=== PATIENT | female | born 1945 | race Caucasian/White ===

== ENCOUNTER 2021-02-09 21:07 | Observation (INO) ==
[2021-02-09 22:30] LABS: Basophils % 0.3 %; Eosinophils # 0.2 K/mcL (0.0-0.6); Hematocrit 39.5 % (35.3-44.9); Hemoglobin 12.5 g/dL (11.5-15.4); Immature Granulocytes % 0.2 % (0-4); Lymphocytes # 2.7 K/mcL (0.6-4.6); Lymphocytes % 40.6 %; Mean Corpuscular HGB Conc 31.6 g/dL (31.6-35.5); Mean Corpuscular Hemoglobin 31.1 pg (28.0-33.3); Mean Corpuscular Volume 98.3 fL (83.0-100.0); Mean Platelet Volume 9.1 fL (9.4-12.4); Monocytes # 0.6 K/mcL (0.0-1.3); Monocytes % 9.3 %; Neutrophils # 3.1 K/mcL (1.6-8.9); Platelet Count 178 K/mcL (140-400); Red Blood Count 4.02 M/mcL (3.82-4.97); Red Cell Distribution Width 13.2 % (11.5-14.5); Segmented Neutrophils % 46.6 %; White Blood Count 6.7 K/mcL (4.3-11.1)
[2021-02-09 22:46] LABS: Bacteria,Urine Few per hpf (None-Few); Bilirubin,Urine Negative (Negative); Blood,Urine Negative (Negative); Clarity,Urine Clear (Clear); Color,Urine Light-Yellow (Yellow); Glucose,Urine (UA) Normal (Normal); Hyaline Casts,Urine Few per lpf (None Seen); Ketones,Urine Negative (Negative); Leukocyte Esterase,Urine Moderate (Negative); Mucus,Urine Few per lpf (None-Few); Nitrite,Urine Positive (Negative); PH,Urine 6.5 pH Units (5.0-8.0); Protein,Urine Negative (Neg-Trace); RBC,Urine 0-3 per hpf (0-3); Specific Gravity,Urine 1.019 (1.010-1.025); Squamous Epithelial Cell,Urine Few per hpf (None-Few); Urobilinogen,Urine Normal (Normal); WBC,Urine 30-50 per hpf (0-3)
[2021-02-09] MEDS ORDERED: cefTRIAXone 1,000 MG in 0.9 % Sodium Chloride Mini Bag 100 ML IVPB ONE (22:49)
[2021-02-09 22:58] LABS: Albumin/Globulin Ratio 1.4 (1.1-2.2); Bilirubin,Direct 0.1 mg/dL (0.0-0.2); Bilirubin,Indirect 0.3 mg/dL (0.0-1.0); Bilirubin,Total 0.4 mg/dL (0.3-1.0); Calcium 9.3 mg/dL (8.6-10.3); Globulin 2.9 g/dL (2.4-3.5); Potassium 4.8 mEq/L (3.5-5.1); Total Protein 6.9 g/dL (6.4-8.9)
[2021-02-09] MEDS ORDERED: Naloxone 0.4 MG/ML INJ IVP PRN (23:48)
[2021-02-09] MEDS ORDERED: Ondansetron ODT 4 MG TAB.RAPDIS SL PRN (23:54)
[2021-02-10] MEDS ORDERED: Acetaminophen 325 MG TABLET PO PRN (00:04)
[2021-02-10] MEDS ORDERED: *HR* OxyCODONE Immed Rel 5 MG TABLET PO PRN (00:04)
[2021-02-10] MEDS ORDERED: *HR* HYDROcodone/Acet 5/325 mg TABLET PO PRN (00:04)
[2021-02-10] MEDS ORDERED: Sennosides/Docusate Sodium TABLET PO PRN (00:05)
[2021-02-10] MEDS: ALPRAZolam 1 MG TABLET PO SCH ×2 (00:46→08:07)
[2021-02-10 05:48] LABS: Basophils % 0.3 %; Eosinophils # 0.3 K/mcL (0.0-0.6); Eosinophils % 3.9 %; Hematocrit 40.2 % (35.3-44.9); Hemoglobin 12.6 g/dL (11.5-15.4); Immature Granulocytes % 0.1 % (0-4); Lymphocytes # 2.9 K/mcL (0.6-4.6); Lymphocytes % 43.7 %; Mean Corpuscular HGB Conc 31.3 g/dL (31.6-35.5); Mean Corpuscular Hemoglobin 30.9 pg (28.0-33.3); Mean Corpuscular Volume 98.5 fL (83.0-100.0); Mean Platelet Volume 9.1 fL (9.4-12.4); Monocytes # 0.6 K/mcL (0.0-1.3); Neutrophils # 2.9 K/mcL (1.6-8.9); Platelet Count 197 K/mcL (140-400); Red Blood Count 4.08 M/mcL (3.82-4.97); Red Cell Distribution Width 13.3 % (11.5-14.5); White Blood Count 6.7 K/mcL (4.3-11.1)
[2021-02-10 06:00] LABS: INR 1.1; Prothrombin Time 13.1 Seconds (9.4-12.1)
[2021-02-10] MEDS ORDERED: *HR* Heparin 5,000 UNIT/ML VIAL SQ SCH (06:00)
[2021-02-10 06:06] LABS: Calcium 9.3 mg/dL (8.6-10.3)
[2021-02-10 06:09] LABS: Chol/HDL Ratio 4.1 (0-4.9)
[2021-02-10] MEDS ORDERED: atenoloL 50 MG TABLET PO SCH (09:00)
[2021-02-10] MEDS ORDERED: Aspirin 81 MG TAB.CHEW PO SCH (09:00)
[2021-02-10] MEDS ORDERED: cefTRIAXone 1,000 MG in Water for inj. (sterile) 10 ML IVP SCH (09:00)
[2021-02-10 09:14] LABS: Magnesium 2.2 mg/dL (1.6-2.6); Phosphorous 3.3 mg/dL (2.7-4.5)
[2021-02-10 11:40] VITALS: BP 157/84
== END 2021-02-10 13:32 | disposition home or self-care (01) ==
LOC: 3BNU 21:07 → EMEROOARM 21:07 → SUATTDRO 23:25 → 3BNU 23:46
PROVIDERS: ADMIT Family Medicine; ATTEND Internal Medicine

== ENCOUNTER 2021-04-27 06:13 | Inpatient (IN) ==
[2021-04-27] MEDS ORDERED: Lidocaine -MPF 4% 5 ML AMPUL ONE (06:32)
[2021-04-27] MEDS ORDERED: *HR* Succinylcholine 200 MG/10 ML VIAL IVP ONE ×2 (06:32→10:44)
[2021-04-27] MEDS ORDERED: Ondansetron 4 MG/2 ML VIAL ONE (06:32)
[2021-04-27] MEDS ORDERED: Lidocaine -MPF 2% 2 ML VIAL ONE ×3 (06:32→08:07)
[2021-04-27] MEDS ORDERED: *HR* Heparin 5,000 UNIT/ML VIAL ONE (06:33)
[2021-04-27] MEDS ORDERED: *HR* Propofol 200 MG/20 ML VIAL IVP ONE (06:35)
[2021-04-27] MEDS ORDERED: *HR* FentaNYL (PF) 100 MCG/2 ML VIAL ONE ×3 (06:36→11:02)
[2021-04-27] MEDS ORDERED: *HR* Phenylephrine 10 MG/ML VIAL ONE (06:42)
[2021-04-27] MEDS ORDERED: Heparin 1,000 UNITS/500 mL 500 ML ONE ×2 (07:02→07:22)
[2021-04-27] MEDS ORDERED: CeFAZolin Syr 2,000MG/20 ML 2,000 MG/20 ML SYRINGE IVPB ONE (07:10)
[2021-04-27] MEDS ORDERED: Ringers Solution, Lactated 1,000 ML IVC SCH (07:15)
[2021-04-27] MEDS ORDERED: Bupivacaine-MPF 0.25% 10 ML VIAL ONE (07:22)
[2021-04-27] MEDS ORDERED: Vancomycin 1,000 MG VIAL ONE (07:22)
[2021-04-27] MEDS ORDERED: Protamine Sulfate 50 MG/5 ML VIAL IVP ONE (07:22)
[2021-04-27] MEDS ORDERED: *HR* Norepinephrine 4 MG/4 ML VIAL IVC ONE (07:40)
[2021-04-27] MEDS ORDERED: *HR* Rocuronium Bromide 50 MG/5 ML VIAL ONE ×2 (07:40→08:45)
[2021-04-27] MEDS ORDERED: *HR* Vasopressin 20 UNIT/ML VIAL ONE (07:40)
[2021-04-27] MEDS ORDERED: *HR* FentaNYL (PF) 100 MCG/2 ML VIAL IVP PRN (07:41)
[2021-04-27] MEDS ORDERED: Vancomycin 1,000 MG, Sodium Chloride IRRigation 1,000 ML IR ONE (07:45)
[2021-04-27] MEDS ORDERED: Albumin Human 5% 25.0 GM/500 ML IV.SOLN ONE (07:59)
[2021-04-27] MEDS ORDERED: EPHEDrine 50 MG/ML VIAL ONE (08:24)
[2021-04-27] MEDS ORDERED: *HR* Magnesium Sulfate 1 GM/2 ML VIAL ONE (09:16)
[2021-04-27] MEDS ORDERED: *HR* HYDROMORPHONE 2 MG/ML VIAL ONE (10:14)
[2021-04-27] MEDS ORDERED: *HR* Etomidate 20 MG/10 ML AMPUL IVP ONE (10:44)
[2021-04-27] MEDS ORDERED: NiCARdipine 2.5 MG/10 ML Syringe IVPB ONE (11:16)
[2021-04-27] MEDS ORDERED: Albumin Human 5% 0 GM/0 ML IV.SOLN ONE (11:48)
[2021-04-27] MEDS ORDERED: Sugammadex Sodium 200 MG/2 ML VIAL IV ONE (12:00)
[2021-04-27] MEDS ORDERED: *HR* Metoprolol 5 MG/5 ML VIAL IVP ONE ×2 (13:02→13:03)
[2021-04-27] MEDS: *HR* HYDROmorphone PF 0.5 MG/0.5 ML SYRINGE IVP PRN ×4 (13:05→13:23)
[2021-04-27] MEDS ORDERED: D5% in 0.9% NACL 1,000 ML IVC SCH (14:36)
[2021-04-27] MEDS ORDERED: *HR* Labetalol 20 MG/4 ML SYRINGE IVP PRN (14:36)
[2021-04-27] MEDS ORDERED: Naloxone 0.4 MG/ML INJ IVP PRN (14:36)
[2021-04-27] MEDS: CeFAZolin 2 GM/120 ML BAG IVPB SCH (16:07)
[2021-04-27] MEDS: Ondansetron 4 MG/2 ML VIAL IVP PRN (16:18)
[2021-04-27] MEDS: *HR* Metoprolol 5 MG/5 ML VIAL IVP SCH (17:50)
[2021-04-27 20:04] LABS: ABG Base Excess -4 mEq/L (-2 to 3); ABG HCO3 23 mEq/L (21-27); ABG Oxygen Saturation 67 % (95-98); ABG PCO2 48 mmHg (35-45); ABG PH 7.28 pH Units (7.32-7.45); ABG PO2 39 mmHg (85-104); ABG TCO2 24 mEq/L (20-26)
[2021-04-27] MEDS ORDERED: Artificial Tears SOLN 15 ML BOTTLE BOTH EYES PRN (20:46)
[2021-04-27] MEDS ORDERED: *HR* Midazolam HCl 5 MG/5 ML VIAL IVP ONE ×2 (20:49→20:50)
[2021-04-27] MEDS ORDERED: FentaNYL (PF) 1,000 MCG/100 ML IV.SOLN IVC SCH (21:00)
[2021-04-27 21:05] LABS: Basophils % 0.1 %; Hematocrit 26.5 % (35.3-44.9); Immature Granulocytes % 0.6 % (0-4); Lymphocytes # 0.7 K/mcL (0.6-4.6); Lymphocytes % 3.4 %; Mean Corpuscular HGB Conc 30.2 g/dL (31.6-35.5); Mean Corpuscular Hemoglobin 30.7 pg (28.0-33.3); Mean Corpuscular Volume 101.5 fL (83.0-100.0); Mean Platelet Volume 9.2 fL (9.4-12.4); Monocytes % 4.5 %; Neutrophils # 19.7 K/mcL (1.6-8.9); Platelet Count 192 K/mcL (140-400); Red Blood Count 2.61 M/mcL (3.82-4.97); Red Cell Distribution Width 13.3 % (11.5-14.5); Segmented Neutrophils % 91.4 %
[2021-04-27 21:07] LABS: White Blood Count 21.5 K/mcL (4.3-11.1)
[2021-04-27 21:12] LABS: INR 1.3
[2021-04-27 21:24] LABS: Calcium 7.1 mg/dL (8.6-10.3); Potassium 5.4 mEq/L (3.5-5.1)
[2021-04-27 21:29] LABS: Platelet Estimate Normal (Normal)
[2021-04-27] MEDS: Pantoprazole 40 MG in 0.9 % Sodium Chloride Mini Bag 100 ML IVC SCH (21:34)
[2021-04-27 22:05] LABS: ABG Base Excess -7 mEq/L (-2 to 3); ABG HCO3 20 mEq/L (21-27); ABG Oxygen Saturation 100 % (95-98); ABG PCO2 49 mmHg (35-45); ABG PH 7.22 pH Units (7.32-7.45); ABG PO2 345 mmHg (85-104); ABG TCO2 22 mEq/L (20-26); Blood Gas VT 380 cc
[2021-04-27] MEDS: Chlorhexidine Rinse 15 ML MOUTHWASH MM SCH (22:19)
[2021-04-27] MEDS ORDERED: Insulin Human Regular 10 UNIT in 0.9 % Sodium Chloride 10 ML IV ONE (22:34)
[2021-04-27] MEDS ORDERED: Calcium Gluconate 1gm/50mL 1 GM/50 ML BAG IVPB PRN (22:34)
[2021-04-27] MEDS ORDERED: Albuterol Neb 7.5 MG, Sodium Chloride for inhalation 12 ML IH ONE (22:37)
[2021-04-27] MEDS ORDERED: Albuterol 2.5 MG/3 ML NEBULIZER IH ONE ×2 (23:08→23:15)
[2021-04-27] MEDS ORDERED: Albuterol 2.5 MG/3 ML NEBULIZER ONE (23:11)
[2021-04-27] MEDS ORDERED: 0.9 % Sodium Chloride 1,000 ML IVC SCH (23:45)
[2021-04-28] MEDS ORDERED: *HR* Midazolam HCl 5 MG/5 ML VIAL IVP ONE ×2 (00:23→00:26)
[2021-04-28] MEDS: FentaNYL (PF) 2,500 MCG/50 ML IV.SOLN IVC SCH ×3 (00:30→20:09)
[2021-04-28] MEDS: CeFAZolin 2 GM/120 ML BAG IVPB SCH (00:43)
[2021-04-28] MEDS: *HR* Metoprolol 5 MG/5 ML VIAL IVP SCH ×4 (00:45→16:59)
[2021-04-28] MEDS: Artificial Tears SOLN 15 ML BOTTLE BOTH EYES SCH ×6 (00:45→19:38)
[2021-04-28] MEDS: Midazolam HCl 50 MG/100 ML IV.SOLN IVC SCH ×2 (00:48→13:32)
[2021-04-28 02:02] LABS: Basophils % 0.1 %; Hematocrit 29.8 % (35.3-44.9); Hemoglobin 8.8 g/dL (11.5-15.4); Immature Granulocytes % 0.7 % (0-4); Lymphocytes # 1.4 K/mcL (0.6-4.6); Lymphocytes % 6.2 %; Mean Corpuscular HGB Conc 29.5 g/dL (31.6-35.5); Mean Corpuscular Hemoglobin 30.8 pg (28.0-33.3); Mean Corpuscular Volume 104.2 fL (83.0-100.0); Mean Platelet Volume 9.1 fL (9.4-12.4); Monocytes # 1.6 K/mcL (0.0-1.3); Monocytes % 7.3 %; Neutrophils # 19.2 K/mcL (1.6-8.9); Platelet Count 158 K/mcL (140-400); Red Blood Count 2.86 M/mcL (3.82-4.97); Red Cell Distribution Width 13.3 % (11.5-14.5); Segmented Neutrophils % 85.7 %; White Blood Count 22.4 K/mcL (4.3-11.1)
[2021-04-28 02:24] LABS: Magnesium 2.3 mg/dL (1.6-2.6); Phosphorous 4.8 mg/dL (2.7-4.5)
[2021-04-28] MEDS: Pantoprazole 40 MG in 0.9 % Sodium Chloride Mini Bag 100 ML IVC SCH ×4 (03:13→18:47)
[2021-04-28 04:35] LABS: ABG Base Excess -9 mEq/L (-2 to 3); ABG HCO3 19 mEq/L (21-27); ABG Oxygen Saturation 96 % (95-98); ABG PCO2 54 mmHg (35-45); ABG PH 7.16 pH Units (7.32-7.45); ABG PO2 106 mmHg (85-104); ABG TCO2 21 mEq/L (20-26); Blood Gas Modality ASSIST CONTROL; Blood Gas VT 380 cc
[2021-04-28 05:19] LABS: Calcium 8.1 mg/dL (8.6-10.3); Potassium 4.3 mEq/L (3.5-5.1)
[2021-04-28] MEDS: Azithromycin 500 MG in 0.9 % Sodium Chloride 250 ML IVPB SCH (06:12)
[2021-04-28] MEDS: MetroNIDAZOLE 500 MG/100 ML 500 MG/100 ML BAG IVPB SCH ×3 (06:31→17:25)
[2021-04-28] MEDS: Aspirin 81 MG TAB.CHEW PO SCH (08:57)
[2021-04-28] MEDS: Chlorhexidine Rinse 15 ML MOUTHWASH MM SCH ×2 (08:57→19:38)
[2021-04-28] MEDS ORDERED: cefTRIAXone 1,000 MG in Water for inj. (sterile) 10 ML IVP SCH (09:00)
[2021-04-28 09:12] LABS: Hemoglobin 7.2 g/dL (11.5-15.4)
[2021-04-28] MEDS: Norepinephrine 4 MG/254 ML IV.SOLN IVC SCH ×4 (10:02→21:25)
[2021-04-28 10:59] LABS: ABG Base Excess -4 mEq/L (-2 to 3); ABG HCO3 21 mEq/L (21-27); ABG Oxygen Saturation 99 % (95-98); ABG PCO2 38 mmHg (35-45); ABG PH 7.35 pH Units (7.32-7.45); ABG PO2 145 mmHg (85-104); ABG TCO2 22 mEq/L (20-26); Blood Gas VT 380 cc
[2021-04-28] MEDS: Cefepime HCl 1,000 MG in Water for inj. (sterile) 10 ML IVP SCH (11:12)
[2021-04-28 12:11] LABS: Albumin 2.9 g/dL (3.5-5.7); Albumin/Globulin Ratio 1.5 (1.1-2.2); Bilirubin,Total 0.3 mg/dL (0.3-1.0); Calcium 7.5 mg/dL (8.6-10.3); Globulin 1.9 g/dL (2.4-3.5); Potassium 4.4 mEq/L (3.5-5.1); Total Protein 4.8 g/dL (6.4-8.9)
[2021-04-28 12:14] LABS: Troponin I 0.09 ng/mL (< 0.04)
[2021-04-28 13:19] LABS: Calcium 7.6 mg/dL (8.6-10.3); Potassium 4.5 mEq/L (3.5-5.1)
[2021-04-28 13:30] LABS: Basophils % 0.1 %; Nucleated Red Blood Cells 0.1 /100 WBC (0); Red Cell Distribution Width 13.5 % (11.5-14.5)
[2021-04-28 13:31] LABS: Hematocrit 30.9 % (35.3-44.9); Hemoglobin 8.9 g/dL (11.5-15.4); Immature Granulocytes % 0.6 % (0-4); Lymphocytes # 1.3 K/mcL (0.6-4.6); Lymphocytes % 6.6 %; Mean Corpuscular HGB Conc 28.8 g/dL (31.6-35.5); Mean Corpuscular Hemoglobin 31.8 pg (28.0-33.3); Mean Corpuscular Volume 110.4 fL (83.0-100.0); Monocytes # 1.5 K/mcL (0.0-1.3); Monocytes % 7.6 %; Neutrophils # 17.1 K/mcL (1.6-8.9); Platelet Count 138 K/mcL (140-400); Segmented Neutrophils % 85.1 %; White Blood Count 20.1 K/mcL (4.3-11.1)
[2021-04-28 14:49] LABS: Burr Cells 2+ (Not Present); Hypochromasia Present (Not Present); Macrocytosis Present (Not Present); Platelet Estimate Decreased (Normal); Poikilocytosis 2+ (Not Present)
[2021-04-28 16:45] LABS: Hematocrit 26.7 % (35.3-44.9); Hemoglobin 8.8 g/dL (11.5-15.4)
[2021-04-28] MEDS ORDERED: *HR* Heparin 5,000 UNIT/ML VIAL SQ SCH (18:00)
[2021-04-28 18:58] LABS: Hematocrit 26.4 % (35.3-44.9); Hemoglobin 8.6 g/dL (11.5-15.4)
[2021-04-28 19:15] LABS: Calcium 7.6 mg/dL (8.6-10.3); Potassium 4.8 mEq/L (3.5-5.1)
[2021-04-28 23:13] LABS: Calcium 7.6 mg/dL (8.6-10.3); Potassium 4.8 mEq/L (3.5-5.1)
[2021-04-29] MEDS: Pantoprazole 40 MG in 0.9 % Sodium Chloride Mini Bag 100 ML IVC SCH ×5 (01:30→19:42)
[2021-04-29] MEDS: Artificial Tears SOLN 15 ML BOTTLE BOTH EYES SCH ×7 (01:31→23:35)
[2021-04-29] MEDS: Cefepime HCl 1,000 MG in Water for inj. (sterile) 10 ML IVP SCH ×3 (01:31→23:35)
[2021-04-29] MEDS: Norepinephrine 4 MG/254 ML IV.SOLN IVC SCH ×2 (01:32→10:58)
[2021-04-29] MEDS: *HR* Metoprolol 5 MG/5 ML VIAL IVP SCH ×4 (01:33→17:23)
[2021-04-29] MEDS: MetroNIDAZOLE 500 MG/100 ML 500 MG/100 ML BAG IVPB SCH ×5 (01:36→23:34)
[2021-04-29] MEDS: Midazolam HCl 50 MG/100 ML IV.SOLN IVC SCH (03:18)
[2021-04-29 03:26] LABS: Basophils % 0.2 %; Eosinophils % 0.1 %; Hematocrit 25.9 % (35.3-44.9); Immature Granulocytes % 0.8 % (0-4); Lymphocytes # 1.7 K/mcL (0.6-4.6); Lymphocytes % 8.8 %; Mean Corpuscular HGB Conc 30.9 g/dL (31.6-35.5); Mean Corpuscular Hemoglobin 29.3 pg (28.0-33.3); Mean Platelet Volume 9.4 fL (9.4-12.4); Monocytes # 1.3 K/mcL (0.0-1.3); Monocytes % 6.4 %; Neutrophils # 16.5 K/mcL (1.6-8.9); Platelet Count 111 K/mcL (140-400); Red Blood Count 2.73 M/mcL (3.82-4.97); Segmented Neutrophils % 83.7 %; White Blood Count 19.7 K/mcL (4.3-11.1)
[2021-04-29 03:41] LABS: Calcium 7.5 mg/dL (8.6-10.3); Potassium 4.7 mEq/L (3.5-5.1)
[2021-04-29 04:06] LABS: Mean Corpuscular Volume 94.9 fL (83.0-100.0)
[2021-04-29 05:03] LABS: ABG Base Excess -6 mEq/L (-2 to 3); ABG HCO3 19 mEq/L (21-27); ABG Oxygen Saturation 100 % (95-98); ABG PCO2 32 mmHg (35-45); ABG PH 7.38 pH Units (7.32-7.45); ABG PO2 168 mmHg (85-104); ABG TCO2 20 mEq/L (20-26); Blood Gas Modality AF; Blood Gas VT 380 cc
[2021-04-29] MEDS: Azithromycin 500 MG in 0.9 % Sodium Chloride 250 ML IVPB SCH (06:26)
[2021-04-29] MEDS: FentaNYL (PF) 2,500 MCG/50 ML IV.SOLN IVC SCH ×2 (07:54→23:34)
[2021-04-29] MEDS: Aspirin 81 MG TAB.CHEW PO SCH (07:56)
[2021-04-29] MEDS: Chlorhexidine Rinse 15 ML MOUTHWASH MM SCH ×2 (07:56→19:42)
[2021-04-29] MEDS ORDERED: Sodium Bicarbonate 75 MEQ in 0.45 % Sodium Chloride 1,000 ML IVC SCH (13:00)
[2021-04-29] MEDS: Sodium Bicarbonate 75 MEQ in 0.45 % Sodium Chloride 1,000 ML IVC SCH (14:07)
[2021-04-29 15:02] LABS: Protein/Creatinine Ratio,Urine 1.2 mg/mg (0.00-0.20)
[2021-04-29 15:02] LABS: Amorphous Sediment,Urine Few per hpf (None-Few); Bacteria,Urine Few per hpf (None-Few); Bilirubin,Urine Negative (Negative); Blood,Urine Moderate (Negative); Clarity,Urine Turbid (Clear); Color,Urine Yellow (Yellow); Glucose,Urine (UA) Normal (Normal); Granular Casts,Urine Few per lpf (None Seen); Hyaline Casts,Urine Few per lpf (None Seen); Ketones,Urine Trace mg/dL (Negative); Leukocyte Esterase,Urine Moderate (Negative); Mucus,Urine Few per lpf (None-Few); Nitrite,Urine Negative (Negative); Protein,Urine 100 mg/dL (Neg-Trace); Specific Gravity,Urine 1.026 (1.010-1.025); Squamous Epithelial Cell,Urine Few per hpf (None-Few); Urobilinogen,Urine Normal (Normal); WBC,Urine 15-30 per hpf (0-3)
[2021-04-29 15:29] LABS: Complement C3 69 mg/dL (87-200)
[2021-04-29 15:45] LABS: Ferritin 807 ng/mL (10-120); Iron < 10 mcg/dL (50-170); Transferrin 172 mg/dL (203-362)
[2021-04-29 16:02] LABS: Hematocrit 23.2 % (35.3-44.9); Hemoglobin 7.2 g/dL (11.5-15.4)
[2021-04-29 16:49] LABS: Folate 13.6 ng/mL (3.0-16.0)
[2021-04-30] MEDS: *HR* Metoprolol 5 MG/5 ML VIAL IVP SCH ×5 (01:52→23:42)
[2021-04-30] MEDS: Sodium Bicarbonate 75 MEQ in 0.45 % Sodium Chloride 1,000 ML IVC SCH (01:52)
[2021-04-30 02:51] LABS: Basophils % 0.1 %; Eosinophils % 0.5 %; Immature Granulocytes % 0.5 % (0-4)
[2021-04-30 02:53] LABS: Eosinophils # 0.1 K/mcL (0.0-0.6); Hematocrit 20.3 % (35.3-44.9); Hemoglobin 6.4 g/dL (11.5-15.4); Immature Platelets 2.2 % (1.1-6.1); Lymphocytes # 1.4 K/mcL (0.6-4.6); Lymphocytes % 10.5 %; Mean Corpuscular HGB Conc 31.5 g/dL (31.6-35.5); Mean Corpuscular Hemoglobin 29.8 pg (28.0-33.3); Mean Corpuscular Volume 94.4 fL (83.0-100.0); Mean Platelet Volume 9.7 fL (9.4-12.4); Monocytes # 0.7 K/mcL (0.0-1.3); Neutrophils # 11.1 K/mcL (1.6-8.9); Red Blood Count 2.15 M/mcL (3.82-4.97); Red Cell Distribution Width 15.7 % (11.5-14.5); Segmented Neutrophils % 83.4 %; White Blood Count 13.3 K/mcL (4.3-11.1)
[2021-04-30 02:54] LABS: Platelet Count 80 K/mcL (140-400)
[2021-04-30 03:10] LABS: Potassium 3.8 mEq/L (3.5-5.1)
[2021-04-30 03:11] LABS: Calcium 7.4 mg/dL (8.6-10.3)
[2021-04-30] MEDS: Artificial Tears SOLN 15 ML BOTTLE BOTH EYES SCH ×6 (03:19→23:41)
[2021-04-30] MEDS ORDERED: 0.9 % Sodium Chloride 250 ML IVC SCH (03:30)
[2021-04-30 04:44] LABS: ABG Base Excess -4 mEq/L (-2 to 3); ABG HCO3 21 mEq/L (21-27); ABG Oxygen Saturation 94 % (95-98); ABG PCO2 40 mmHg (35-45); ABG PH 7.33 pH Units (7.32-7.45); ABG PO2 77 mmHg (85-104); ABG TCO2 23 mEq/L (20-26); Blood Gas VT 380 cc
[2021-04-30] MEDS ORDERED: 0.9 % Sodium Chloride 250 ML ONE (05:09)
[2021-04-30] MEDS: Pantoprazole 40 MG in 0.9 % Sodium Chloride Mini Bag 100 ML IVC SCH ×6 (05:20→22:15)
[2021-04-30] MEDS: Azithromycin 500 MG in 0.9 % Sodium Chloride 250 ML IVPB SCH (05:49)
[2021-04-30] MEDS: MetroNIDAZOLE 500 MG/100 ML 500 MG/100 ML BAG IVPB SCH ×4 (05:49→23:42)
[2021-04-30] MEDS: Chlorhexidine Rinse 15 ML MOUTHWASH MM SCH ×2 (07:51→20:16)
[2021-04-30] MEDS: Aspirin 81 MG TAB.CHEW PO SCH (09:49)
[2021-04-30 10:07] LABS: Hematocrit 25.5 % (35.3-44.9)
[2021-04-30 10:11] LABS: Hemoglobin 8.1 g/dL (11.5-15.4)
[2021-04-30] MEDS: Cefepime HCl 1,000 MG in Water for inj. (sterile) 10 ML IVP SCH ×2 (10:27→22:15)
[2021-04-30] MEDS: FentaNYL (PF) 2,500 MCG/50 ML IV.SOLN IVC SCH (20:17)
[2021-04-30] MEDS: Midazolam HCl 50 MG/100 ML IV.SOLN IVC SCH (22:57)
[2021-05-01] MEDS: FentaNYL (PF) 2,500 MCG/50 ML IV.SOLN IVC SCH (00:54)
[2021-05-01] MEDS: Pantoprazole 40 MG in 0.9 % Sodium Chloride Mini Bag 100 ML IVC SCH ×2 (02:15→07:26)
[2021-05-01 04:03] LABS: ABG Base Excess -7 mEq/L (-2 to 3); ABG HCO3 18 mEq/L (21-27); ABG Oxygen Saturation 92 % (95-98); ABG PCO2 32 mmHg (35-45); ABG PH 7.35 pH Units (7.32-7.45); ABG PO2 65 mmHg (85-104); ABG TCO2 19 mEq/L (20-26); Blood Gas Modality ASSIST CONTROL; Blood Gas VT 380 cc
[2021-05-01] MEDS: Artificial Tears SOLN 15 ML BOTTLE BOTH EYES SCH ×4 (04:08→19:28)
[2021-05-01 04:19] LABS: Calcium 7.8 mg/dL (8.6-10.3); Magnesium 2.2 mg/dL (1.6-2.6); Potassium 3.8 mEq/L (3.5-5.1)
[2021-05-01 04:25] LABS: Basophils % 0.1 %
[2021-05-01 04:27] LABS: Eosinophils # 0.1 K/mcL (0.0-0.6); Hematocrit 27.5 % (35.3-44.9); Hemoglobin 8.5 g/dL (11.5-15.4); Immature Granulocytes % 0.6 % (0-4); Immature Platelets 2.1 % (1.1-6.1); Lymphocytes # 1.3 K/mcL (0.6-4.6); Lymphocytes % 9.4 %; Mean Corpuscular HGB Conc 30.9 g/dL (31.6-35.5); Mean Corpuscular Hemoglobin 29.9 pg (28.0-33.3); Mean Corpuscular Volume 96.8 fL (83.0-100.0); Mean Platelet Volume 9.6 fL (9.4-12.4); Monocytes # 0.8 K/mcL (0.0-1.3); Monocytes % 6.2 %; Neutrophils # 11.1 K/mcL (1.6-8.9); Red Blood Count 2.84 M/mcL (3.82-4.97); Red Cell Distribution Width 14.9 % (11.5-14.5); Segmented Neutrophils % 82.7 %; White Blood Count 13.4 K/mcL (4.3-11.1)
[2021-05-01 04:33] LABS: Platelet Count 87 K/mcL (140-400)
[2021-05-01] MEDS: *HR* Metoprolol 5 MG/5 ML VIAL IVP SCH ×4 (05:35→23:30)
[2021-05-01] MEDS: MetroNIDAZOLE 500 MG/100 ML 500 MG/100 ML BAG IVPB SCH ×3 (05:35→22:13)
[2021-05-01] MEDS: Azithromycin 500 MG in 0.9 % Sodium Chloride 250 ML IVPB SCH (05:35)
[2021-05-01] MEDS: Chlorhexidine Rinse 15 ML MOUTHWASH MM SCH ×2 (07:28→19:28)
[2021-05-01] MEDS: Cefepime HCl 1,000 MG in Water for inj. (sterile) 10 ML IVP SCH ×2 (11:56→22:13)
[2021-05-01] MEDS: Ondansetron 4 MG/2 ML VIAL IVP PRN (13:15)
[2021-05-01] MEDS ORDERED: Ipratropium/Albuterol Neb 3 ML IH PRN (14:15)
[2021-05-01] MEDS: Aspirin 81 MG TAB.CHEW PO SCH (17:16)
[2021-05-01] MEDS: Pantoprazole 40 MG VIAL IVP SCH (17:21)
[2021-05-01] MEDS ORDERED: ALPRAZolam 1 MG TABLET PO PRN (18:18)
[2021-05-01] MEDS: *HR* LORazepam 2 MG/ML VIAL IVP SCH ×2 (18:35→23:30)
[2021-05-02 00:29] LABS: Lambda Qnt Free Light Chains 27.24 mg/L (5.71-26.30)
[2021-05-02 04:34] LABS: VBG Ionized Calcium 1.18 mmol/L (1.15-1.35)
[2021-05-02 04:47] LABS: Albumin 2.9 g/dL (3.5-5.7); Albumin/Globulin Ratio 1.3 (1.1-2.2); Bilirubin,Total 0.9 mg/dL (0.3-1.0); Calcium 8.4 mg/dL (8.6-10.3); Globulin 2.2 g/dL (2.4-3.5); Magnesium 2.1 mg/dL (1.6-2.6); Phosphorous 3.1 mg/dL (2.7-4.5); Potassium 4.1 mEq/L (3.5-5.1); Total Protein 5.1 g/dL (6.4-8.9)
[2021-05-02 05:05] LABS: Basophils % 0.1 %; Eosinophils % 0.1 %; Hematocrit 28.6 % (35.3-44.9); Hemoglobin 8.9 g/dL (11.5-15.4); Immature Granulocytes % 0.9 % (0-4); Immature Platelets 2.2 % (1.1-6.1); Lymphocytes % 6.7 %; Mean Corpuscular HGB Conc 31.1 g/dL (31.6-35.5); Mean Corpuscular Hemoglobin 30.4 pg (28.0-33.3); Mean Corpuscular Volume 97.6 fL (83.0-100.0); Mean Platelet Volume 9.3 fL (9.4-12.4); Monocytes # 1.1 K/mcL (0.0-1.3); Monocytes % 7.3 %; Neutrophils # 12.9 K/mcL (1.6-8.9); Platelet Count 103 K/mcL (140-400); Red Blood Count 2.93 M/mcL (3.82-4.97); Segmented Neutrophils % 84.9 %; White Blood Count 15.2 K/mcL (4.3-11.1)
[2021-05-02] MEDS: Azithromycin 500 MG in 0.9 % Sodium Chloride 250 ML IVPB SCH (06:02)
[2021-05-02] MEDS: MetroNIDAZOLE 500 MG/100 ML 500 MG/100 ML BAG IVPB SCH ×2 (06:03→13:31)
[2021-05-02] MEDS: *HR* Metoprolol 5 MG/5 ML VIAL IVP SCH ×2 (06:03→12:23)
[2021-05-02] MEDS: Pantoprazole 40 MG VIAL IVP SCH ×2 (06:03→17:35)
[2021-05-02] MEDS: Norepinephrine 4 MG/254 ML IV.SOLN IVC SCH (07:37)
[2021-05-02] MEDS: *HR* LORazepam 2 MG/ML VIAL IVP SCH (08:15)
[2021-05-02] MEDS ORDERED: Aspirin Enteric Coated 81 MG Tablet PO SCH (09:00)
[2021-05-02] MEDS: Ondansetron 4 MG/2 ML VIAL IVP PRN (10:04)
[2021-05-02 10:37] LABS: ANA IgG by ELISA NONE DETECTED (None Detected); Kappa Qnt Free Light Chains 48.19 mg/L (3.30-19.40)
[2021-05-02] MEDS: Cefepime HCl 1,000 MG in Water for inj. (sterile) 10 ML IVP SCH ×2 (12:20→23:39)
[2021-05-02] MEDS ORDERED: 0.9 % Sodium Chloride 250 ML IVC SCH (13:44)
[2021-05-02] MEDS ORDERED: Ipratropium/Albuterol Neb 3 ML IH PRN (13:44)
[2021-05-02] MEDS ORDERED: Ondansetron 4 MG/2 ML VIAL IVP PRN (13:44)
[2021-05-02] MEDS ORDERED: Naloxone 0.4 MG/ML INJ IVP PRN (13:44)
[2021-05-02] MEDS ORDERED: MetroNIDAZOLE 500 MG/100 ML 500 MG/100 ML BAG IVPB SCH (14:00)
[2021-05-02] MEDS: *HR* Labetalol 20 MG/4 ML SYRINGE IVP PRN (17:40)
[2021-05-02] MEDS: ALPRAZolam 1 MG TABLET PO PRN (18:52)
[2021-05-03 04:15] LABS: Basophils % 0.2 %; Eosinophils % 0.2 %; Mean Platelet Volume 8.9 fL (9.4-12.4); Red Cell Distribution Width 14.8 % (11.5-14.5)
[2021-05-03 04:17] LABS: Hematocrit 25.9 % (35.3-44.9); Hemoglobin 8.2 g/dL (11.5-15.4); Immature Granulocytes % 1.3 % (0-4); Immature Platelets 2.5 % (1.1-6.1); Lymphocytes # 1.3 K/mcL (0.6-4.6); Lymphocytes % 9.5 %; Mean Corpuscular HGB Conc 31.7 g/dL (31.6-35.5); Mean Corpuscular Hemoglobin 30.3 pg (28.0-33.3); Mean Corpuscular Volume 95.6 fL (83.0-100.0); Monocytes # 1.3 K/mcL (0.0-1.3); Monocytes % 9.9 %; Platelet Count 104 K/mcL (140-400); Red Blood Count 2.71 M/mcL (3.82-4.97); Segmented Neutrophils % 78.9 %; White Blood Count 13.2 K/mcL (4.3-11.1)
[2021-05-03 04:23] LABS: Neutrophils # 10.4 K/mcL (1.6-8.9)
[2021-05-03 04:25] LABS: VBG Ionized Calcium 1.19 mmol/L (1.15-1.35)
[2021-05-03 04:34] LABS: Albumin 2.8 g/dL (3.5-5.7); Albumin/Globulin Ratio 1.5 (1.1-2.2); Bilirubin,Total 0.7 mg/dL (0.3-1.0); Globulin 1.9 g/dL (2.4-3.5); Magnesium 1.9 mg/dL (1.6-2.6); Phosphorous 2.3 mg/dL (2.7-4.5); Potassium 3.3 mEq/L (3.5-5.1); Total Protein 4.7 g/dL (6.4-8.9)
[2021-05-03] MEDS ORDERED: Potassium Phosphate 44 MEQ in 0.9 % Sodium Chloride 250 ML IVPB ONE (05:09)
[2021-05-03] MEDS: Pantoprazole 40 MG VIAL IVP SCH ×2 (05:52→17:21)
[2021-05-03] MEDS ORDERED: Calcium Gluconate 1gm/50mL 1 GM/50 ML BAG IVPB PRN (08:11)
[2021-05-03] MEDS: Aspirin Enteric Coated 81 MG Tablet PO SCH (09:39)
[2021-05-03] MEDS: Cefepime HCl 1,000 MG in Water for inj. (sterile) 10 ML IVP SCH (10:00)
[2021-05-03] MEDS: *HR* Labetalol 20 MG/4 ML SYRINGE IVP PRN (15:38)
[2021-05-03] MEDS ORDERED: *HR* Labetalol 20 MG/4 ML SYRINGE IVP PRN (16:00)
[2021-05-03] MEDS: ALPRAZolam 1 MG TABLET PO PRN (17:21)
[2021-05-03 18:10] LABS: Magnesium 2.1 mg/dL (1.6-2.6); Potassium 3.1 mEq/L (3.5-5.1)
[2021-05-03] MEDS ORDERED: Potassium Chloride Elixir 20 MEQ/15 ML UDC PO ONE (18:28)
[2021-05-03] MEDS: Ipratropium/Albuterol Neb 3 ML IH SCH ×2 (20:02→23:51)
[2021-05-03] MEDS ORDERED: Cefepime HCl 2,000 MG in Water for inj. (sterile) 20 ML IVP SCH (23:00)
[2021-05-03 23:50] LABS: ABG Base Excess -4 mEq/L (-2 to 3); ABG HCO3 20 mEq/L (21-27); ABG Oxygen Saturation 98 % (95-98); ABG PCO2 30 mmHg (35-45); ABG PH 7.43 pH Units (7.32-7.45); ABG PO2 101 mmHg (85-104); ABG TCO2 21 mEq/L (20-26)
[2021-05-04 00:22] LABS: Alpha 2 Globulin (PEP) 0.57 g/dL (0.48-1.05); Beta Globulin (PEP) 0.53 g/dL (0.48-1.10)
[2021-05-04 03:38] LABS: VBG Ionized Calcium 1.09 mmol/L (1.15-1.35)
[2021-05-04 03:46] LABS: Basophils % 0.3 %; Eosinophils # 0.2 K/mcL (0.0-0.6); Eosinophils % 1.7 %; Hematocrit 27.4 % (35.3-44.9); Hemoglobin 8.8 g/dL (11.5-15.4); Immature Platelets 2.8 % (1.1-6.1); Lymphocytes % 8.2 %; Mean Corpuscular HGB Conc 32.1 g/dL (31.6-35.5); Mean Corpuscular Hemoglobin 31.3 pg (28.0-33.3); Mean Corpuscular Volume 97.5 fL (83.0-100.0); Mean Platelet Volume 9.9 fL (9.4-12.4); Monocytes # 1.1 K/mcL (0.0-1.3); Monocytes % 9.2 %; Neutrophils # 9.4 K/mcL (1.6-8.9); Red Blood Count 2.81 M/mcL (3.82-4.97); Red Cell Distribution Width 15.2 % (11.5-14.5); Segmented Neutrophils % 77.6 %; White Blood Count 12.1 K/mcL (4.3-11.1)
[2021-05-04 04:19] LABS: Alanine Aminotransferase 17 Units/L (7-52); Albumin 2.8 g/dL (3.5-5.7); Albumin/Globulin Ratio 1.4 (1.1-2.2); Alkaline Phosphatase 44 Units/L (34-104); Aspartate Amino Transferase 35 Units/L (13-39); BUN/Creatinine Ratio 39 (6-26); Blood Urea Nitrogen 38 mg/dL (8-23); Calcium 7.6 mg/dL (8.6-10.3); Carbon Dioxide 18 mEq/L (23-29); Chloride 119 mEq/L (98-107); Glucose 127 mg/dL (70-105); Magnesium 1.8 mg/dL (1.6-2.6); Osmolality,Calculated 309 (280-300); Phosphorous 2.6 mg/dL (2.7-4.5); Potassium 3.2 mEq/L (3.5-5.1); Sodium 144 mEq/L (136-145); Total Protein 4.8 g/dL (6.4-8.9); eGFR For African Americans > 60 (> 60); eGFR For Non-African Americans 55 (> 60)
[2021-05-04 04:24] LABS: Platelet Count 97 K/mcL (140-400)
[2021-05-04] MEDS: Ipratropium/Albuterol Neb 3 ML IH SCH ×6 (04:28→23:29)
[2021-05-04] MEDS ORDERED: Potassium Phosphate 44 MEQ in 0.9 % Sodium Chloride 250 ML IVPB ONE (05:33)
[2021-05-04] MEDS: Pantoprazole 40 MG VIAL IVP SCH ×2 (06:18→17:24)
[2021-05-04 07:19] LABS: IFE Reflexed IFE Done; Immunoglobulin A 131 mg/dL (68-408); Immunoglobulin G 518 mg/dL (768-1632); Immunoglobulin M 44 mg/dL (35-263)
[2021-05-04] MEDS: Aspirin Enteric Coated 81 MG Tablet PO SCH (09:19)
[2021-05-04] MEDS ORDERED: *HR* Metoprolol 5 MG/5 ML VIAL IVP ONE ×2 (09:36→09:38)
[2021-05-04] MEDS: ALPRAZolam 1 MG TABLET PO PRN (09:44)
[2021-05-04 10:12] LABS: Basophils # 0.1 K/mcL (0.0-0.2); Basophils % 0.4 %; Eosinophils # 0.1 K/mcL (0.0-0.6); Eosinophils % 0.8 %; Hemoglobin 8.9 g/dL (11.5-15.4); Immature Granulocytes % 3.1 % (0-4); Lymphocytes # 0.9 K/mcL (0.6-4.6); Mean Corpuscular HGB Conc 31.8 g/dL (31.6-35.5); Mean Corpuscular Hemoglobin 30.8 pg (28.0-33.3); Mean Corpuscular Volume 96.9 fL (83.0-100.0); Mean Platelet Volume 9.8 fL (9.4-12.4); Monocytes # 0.9 K/mcL (0.0-1.3); Monocytes % 7.7 %; Neutrophils # 9.8 K/mcL (1.6-8.9); Platelet Count 101 K/mcL (140-400); Red Blood Count 2.89 M/mcL (3.82-4.97); White Blood Count 12.2 K/mcL (4.3-11.1)
[2021-05-04] MEDS ORDERED: Naloxone 0.4 MG/ML INJ IVP PRN (10:23)
[2021-05-04] MEDS ORDERED: 0.9 % Sodium Chloride 250 ML IVC SCH (10:23)
[2021-05-04] MEDS ORDERED: Ondansetron 4 MG/2 ML VIAL IVP PRN (10:23)
[2021-05-04] MEDS ORDERED: Ipratropium/Albuterol Neb 3 ML IH PRN (10:23)
[2021-05-04 10:31] LABS: BUN/Creatinine Ratio 37 (6-26); Blood Urea Nitrogen 38 mg/dL (8-23); Calcium 7.9 mg/dL (8.6-10.3); Carbon Dioxide 20 mEq/L (23-29); Chloride 117 mEq/L (98-107); Glucose 147 mg/dL (70-105); Osmolality,Calculated 310 (280-300); Potassium 3.4 mEq/L (3.5-5.1); Sodium 144 mEq/L (136-145); eGFR For African Americans > 60 (> 60); eGFR For Non-African Americans 52 (> 60)
[2021-05-04] MEDS ORDERED: ALPRAZolam 1 MG TABLET PO SCH (15:00)
[2021-05-04] MEDS: ALPRAZolam 1 MG TABLET PO SCH ×2 (15:08→21:33)
[2021-05-04] MEDS ORDERED: atenoloL 50 MG TABLET PO ONE (15:30)
[2021-05-05] MEDS: Ipratropium/Albuterol Neb 3 ML IH SCH ×5 (03:50→20:02)
[2021-05-05] MEDS: Pantoprazole 40 MG VIAL IVP SCH (05:44)
[2021-05-05 06:06] LABS: Basophils % 0.3 %; Hematocrit 29.7 % (35.3-44.9); Hemoglobin 8.8 g/dL (11.5-15.4); Mean Corpuscular HGB Conc 29.6 g/dL (31.6-35.5)
[2021-05-05 06:09] LABS: Eosinophils # 0.5 K/mcL (0.0-0.6); Eosinophils % 4.9 %; Immature Granulocytes % 3.3 % (0-4); Immature Platelets 4.2 % (1.1-6.1); Lymphocytes # 1.1 K/mcL (0.6-4.6); Lymphocytes % 10.6 %; Mean Corpuscular Hemoglobin 30.4 pg (28.0-33.3); Mean Corpuscular Volume 102.8 fL (83.0-100.0); Mean Platelet Volume 10.3 fL (9.4-12.4); Monocytes # 0.9 K/mcL (0.0-1.3); Monocytes % 8.3 %; Red Blood Count 2.89 M/mcL (3.82-4.97); Red Cell Distribution Width 15.9 % (11.5-14.5); Segmented Neutrophils % 72.6 %; White Blood Count 10.7 K/mcL (4.3-11.1)
[2021-05-05 06:11] LABS: Neutrophils # 7.8 K/mcL (1.6-8.9); Platelet Count 92 K/mcL (140-400)
[2021-05-05 06:18] LABS: BUN/Creatinine Ratio 34 (6-26); Blood Urea Nitrogen 32 mg/dL (8-23); Calcium 7.9 mg/dL (8.6-10.3); Carbon Dioxide 20 mEq/L (23-29); Chloride 117 mEq/L (98-107); Glucose 108 mg/dL (70-105); Osmolality,Calculated 305 (280-300); Potassium 4.2 mEq/L (3.5-5.1); Sodium 144 mEq/L (136-145); eGFR For African Americans > 60 (> 60); eGFR For Non-African Americans 58 (> 60)
[2021-05-05] MEDS: ALPRAZolam 1 MG TABLET PO SCH ×3 (09:04→22:31)
[2021-05-05] MEDS: Aspirin Enteric Coated 81 MG Tablet PO SCH (09:05)
[2021-05-05] MEDS: atenoloL 50 MG TABLET PO SCH (11:45)
[2021-05-06] MEDS: Ipratropium/Albuterol Neb 3 ML IH SCH ×7 (00:31→23:58)
[2021-05-06 06:30] LABS: BUN/Creatinine Ratio 31 (6-26); Blood Urea Nitrogen 25 mg/dL (8-23); Calcium 8.1 mg/dL (8.6-10.3); Carbon Dioxide 24 mEq/L (23-29); Chloride 111 mEq/L (98-107); Glucose 120 mg/dL (70-105); Osmolality,Calculated 296 (280-300); Potassium 3.4 mEq/L (3.5-5.1); Sodium 140 mEq/L (136-145); eGFR For African Americans > 60 (> 60); eGFR For Non-African Americans > 60 (> 60)
[2021-05-06] MEDS: Aspirin Enteric Coated 81 MG Tablet PO SCH (08:32)
[2021-05-06] MEDS: ALPRAZolam 1 MG TABLET PO SCH ×3 (08:32→21:02)
[2021-05-06 09:03] LABS: Basophils # 0.1 K/mcL (0.0-0.2); Basophils % 0.4 %; Eosinophils # 0.3 K/mcL (0.0-0.6); Eosinophils % 2.2 %; Hemoglobin 9.7 g/dL (11.5-15.4); Immature Granulocytes % 4.2 % (0-4); Lymphocytes # 1.5 K/mcL (0.6-4.6); Lymphocytes % 11.4 %; Mean Corpuscular HGB Conc 31.3 g/dL (31.6-35.5); Mean Corpuscular Hemoglobin 30.6 pg (28.0-33.3); Mean Corpuscular Volume 97.8 fL (83.0-100.0); Mean Platelet Volume 9.9 fL (9.4-12.4); Monocytes # 1.1 K/mcL (0.0-1.3); Monocytes % 8.5 %; Neutrophils # 9.8 K/mcL (1.6-8.9); Platelet Count 132 K/mcL (140-400); Red Blood Count 3.17 M/mcL (3.82-4.97); Red Cell Distribution Width 15.9 % (11.5-14.5); Segmented Neutrophils % 73.3 %; White Blood Count 13.4 K/mcL (4.3-11.1)
[2021-05-06] MEDS: atenoloL 50 MG TABLET PO SCH (11:23)
[2021-05-07] MEDS: Ipratropium/Albuterol Neb 3 ML IH SCH ×5 (03:57→19:41)
[2021-05-07] MEDS: ALPRAZolam 1 MG TABLET PO SCH ×3 (07:31→20:14)
[2021-05-07] MEDS: Aspirin Enteric Coated 81 MG Tablet PO SCH (07:31)
[2021-05-07] MEDS: atenoloL 50 MG TABLET PO SCH (11:33)
[2021-05-07 17:50] LABS: Basophils % 0.3 %; Eosinophils # 0.4 K/mcL (0.0-0.6); Eosinophils % 3.5 %; Hematocrit 30.9 % (35.3-44.9); Hemoglobin 10.1 g/dL (11.5-15.4); Immature Granulocytes % 2.3 % (0-4); Lymphocytes % 8.9 %; Mean Corpuscular HGB Conc 32.7 g/dL (31.6-35.5); Mean Corpuscular Hemoglobin 32.1 pg (28.0-33.3); Mean Corpuscular Volume 98.1 fL (83.0-100.0); Mean Platelet Volume 9.1 fL (9.4-12.4); Monocytes # 0.9 K/mcL (0.0-1.3); Monocytes % 7.7 %; Neutrophils # 8.7 K/mcL (1.6-8.9); Platelet Count 189 K/mcL (140-400); Red Blood Count 3.15 M/mcL (3.82-4.97); Red Cell Distribution Width 16.8 % (11.5-14.5); Segmented Neutrophils % 77.3 %; White Blood Count 11.3 K/mcL (4.3-11.1)
[2021-05-08] MEDS: Ipratropium/Albuterol Neb 3 ML IH SCH ×5 (00:09→16:19)
[2021-05-08 02:56] LABS: BUN/Creatinine Ratio 22 (6-26); Blood Urea Nitrogen 17 mg/dL (8-23); Calcium 7.9 mg/dL (8.6-10.3); Carbon Dioxide 24 mEq/L (23-29); Chloride 110 mEq/L (98-107); Glucose 92 mg/dL (70-105); Osmolality,Calculated 291 (280-300); Sodium 140 mEq/L (136-145); eGFR For African Americans > 60 (> 60); eGFR For Non-African Americans > 60 (> 60)
[2021-05-08 05:52] LABS: Basophils % 0.2 %; Eosinophils # 0.6 K/mcL (0.0-0.6); Eosinophils % 4.8 %; Hematocrit 30.5 % (35.3-44.9); Hemoglobin 9.6 g/dL (11.5-15.4); Immature Granulocytes % 1.8 % (0-4); Lymphocytes # 1.6 K/mcL (0.6-4.6); Mean Corpuscular HGB Conc 31.5 g/dL (31.6-35.5); Mean Corpuscular Hemoglobin 30.5 pg (28.0-33.3); Mean Corpuscular Volume 96.8 fL (83.0-100.0); Mean Platelet Volume 9.4 fL (9.4-12.4); Monocytes % 8.4 %; Neutrophils # 8.7 K/mcL (1.6-8.9); Platelet Count 204 K/mcL (140-400); Red Blood Count 3.15 M/mcL (3.82-4.97); Red Cell Distribution Width 16.8 % (11.5-14.5); Segmented Neutrophils % 71.8 %; White Blood Count 12.2 K/mcL (4.3-11.1)
[2021-05-08] MEDS: ALPRAZolam 1 MG TABLET PO SCH ×2 (09:45→16:45)
[2021-05-08] MEDS: Aspirin Enteric Coated 81 MG Tablet PO SCH (09:45)
[2021-05-08] MEDS: atenoloL 50 MG TABLET PO SCH (12:12)
[2021-05-08 15:33] VITALS: BP 156/69; PULSE 79; TEMP 98.8
[2021-05-08 16:20] VITALS: O2SAT 97
[2021-05-08 17:18] LABS: Influenza A PCR Negative (Negative); Influenza B PCR Negative (Negative); Resp. Syncytial Virus PCR Negative (Negative)
[2021-05-08 17:30] LABS: SARS-CoV-2 by PCR (In House) Negative (Negative)
== END 2021-05-08 18:50 | DRG 356 ==
LOC: SAMDAY 06:13 → 2NNU 14:11 → ICNU 20:46 → 2NENU 05-05 11:28
PROVIDERS: ADMIT Surgery; ATTEND Surgery

== ENCOUNTER 2021-05-10 17:40 | Inpatient (IN) ==
[2021-05-10] MEDS ORDERED: Ondansetron 4 MG/2 ML VIAL IVP PRN (20:53)
[2021-05-10] MEDS ORDERED: Naloxone 0.4 MG/ML INJ IVP PRN (20:53)
[2021-05-10] MEDS ORDERED: *HR* Heparin 5,000 UNIT/ML VIAL IVP PRN ×2 (20:55)
[2021-05-10 21:31] LABS: Basophils % 0.4 %; Eosinophils # 0.5 K/mcL (0.0-0.6); Eosinophils % 4.4 %; Hematocrit 32.9 % (35.3-44.9); Hemoglobin 10.5 g/dL (11.5-15.4); Immature Granulocytes % 1.2 % (0-4); Lymphocytes # 1.7 K/mcL (0.6-4.6); Lymphocytes % 15.3 %; Mean Corpuscular HGB Conc 31.9 g/dL (31.6-35.5); Mean Corpuscular Hemoglobin 30.8 pg (28.0-33.3); Mean Corpuscular Volume 96.5 fL (83.0-100.0); Mean Platelet Volume 8.6 fL (9.4-12.4); Monocytes % 9.1 %; Neutrophils # 7.7 K/mcL (1.6-8.9); Platelet Count 276 K/mcL (140-400); Red Blood Count 3.41 M/mcL (3.82-4.97); Red Cell Distribution Width 16.2 % (11.5-14.5); Segmented Neutrophils % 69.6 %; White Blood Count 11.1 K/mcL (4.3-11.1)
[2021-05-10 21:41] LABS: Activated Partial Thrombo Time 37.2 Seconds (26.0-36.0)
[2021-05-10 21:45] LABS: BUN/Creatinine Ratio 14 (6-26); Blood Urea Nitrogen 12 mg/dL (8-23); Calcium 8.7 mg/dL (8.6-10.3); Carbon Dioxide 28 mEq/L (23-29); Chloride 104 mEq/L (98-107); Glucose 106 mg/dL (70-105); Osmolality,Calculated 286 (280-300); Potassium 3.9 mEq/L (3.5-5.1); Sodium 138 mEq/L (136-145); eGFR For African Americans > 60 (> 60); eGFR For Non-African Americans > 60 (> 60)
[2021-05-10] MEDS: Heparin 25,000UNIT/250ML 1/2NS 25,000 UNIT/250 ML IV.SOLN IVC SCH (21:51)
[2021-05-10] MEDS: ALPRAZolam 1 MG TABLET PO SCH (23:05)
[2021-05-10] MEDS: amLODIPine 5 MG TABLET PO SCH (23:05)
[2021-05-10] MEDS ORDERED: Ipratropium/Albuterol Neb 3 ML IH PRN (23:47)
[2021-05-11] MEDS ORDERED: Gabapentin 400 MG CAPSULE PO SCH (01:00)
[2021-05-11 04:31] LABS: Basophils # 0.1 K/mcL (0.0-0.2); Basophils % 0.5 %; Eosinophils # 0.4 K/mcL (0.0-0.6); Eosinophils % 4.3 %; Hemoglobin 9.7 g/dL (11.5-15.4); Immature Granulocytes % 1.7 % (0-4); Lymphocytes # 1.3 K/mcL (0.6-4.6); Lymphocytes % 13.2 %; Mean Corpuscular HGB Conc 31.3 g/dL (31.6-35.5); Mean Corpuscular Hemoglobin 30.5 pg (28.0-33.3); Mean Corpuscular Volume 97.5 fL (83.0-100.0); Mean Platelet Volume 8.9 fL (9.4-12.4); Monocytes # 0.9 K/mcL (0.0-1.3); Monocytes % 8.9 %; Neutrophils # 7.1 K/mcL (1.6-8.9); Platelet Count 256 K/mcL (140-400); Red Blood Count 3.18 M/mcL (3.82-4.97); Segmented Neutrophils % 71.4 %
[2021-05-11 04:54] LABS: BUN/Creatinine Ratio 14 (6-26); Blood Urea Nitrogen 12 mg/dL (8-23); Calcium 8.4 mg/dL (8.6-10.3); Carbon Dioxide 30 mEq/L (23-29); Chloride 105 mEq/L (98-107); Glucose 95 mg/dL (70-105); Osmolality,Calculated 290 (280-300); Potassium 3.7 mEq/L (3.5-5.1); Sodium 140 mEq/L (136-145); eGFR For African Americans > 60 (> 60); eGFR For Non-African Americans > 60 (> 60)
[2021-05-11] MEDS ORDERED: Perflutren Lipid Microsphere 1.3 ML in 0.9 % Sodium Chloride 8.7 ML IVP PRN (07:23)
[2021-05-11] MEDS: amLODIPine 5 MG TABLET PO SCH (09:43)
[2021-05-11] MEDS: ALPRAZolam 1 MG TABLET PO SCH ×3 (09:43→21:47)
[2021-05-11] MEDS: atenoloL 50 MG TABLET PO SCH (09:43)
[2021-05-11] MEDS: Aspirin 81 MG TAB.CHEW PO SCH (09:43)
[2021-05-11 12:45] LABS: Heparin anti-factor XA UFH 0.41 IU/mL (0.30-0.70)
[2021-05-11 13:40] LABS: INR 1.1; Prothrombin Time 13.1 Seconds (9.4-12.1)
[2021-05-11] MEDS ORDERED: Warfarin perPT PO PRN (18:00)
[2021-05-11] MEDS ORDERED: *HR* Warfarin 5 MG TABLET PO ONE (18:00)
[2021-05-12] MEDS: Heparin 25,000UNIT/250ML 1/2NS 25,000 UNIT/250 ML IV.SOLN IVC SCH (06:56)
[2021-05-12 09:23] LABS: Basophils # 0.1 K/mcL (0.0-0.2); Eosinophils # 0.6 K/mcL (0.0-0.6); Eosinophils % 6.9 %; Hemoglobin 10.6 g/dL (11.5-15.4); Immature Granulocytes % 1.7 % (0-4); Lymphocytes # 1.5 K/mcL (0.6-4.6); Lymphocytes % 18.2 %; Mean Corpuscular HGB Conc 30.3 g/dL (31.6-35.5); Mean Corpuscular Hemoglobin 30.8 pg (28.0-33.3); Mean Corpuscular Volume 101.7 fL (83.0-100.0); Mean Platelet Volume 9.9 fL (9.4-12.4); Monocytes # 0.8 K/mcL (0.0-1.3); Monocytes % 10.2 %; Platelet Count 278 K/mcL (140-400); Red Blood Count 3.44 M/mcL (3.82-4.97); Red Cell Distribution Width 16.4 % (11.5-14.5); White Blood Count 8.1 K/mcL (4.3-11.1)
[2021-05-12 09:31] LABS: INR 1.2; Prothrombin Time 13.7 Seconds (9.4-12.1)
[2021-05-12 09:42] LABS: BUN/Creatinine Ratio 13 (6-26); Blood Urea Nitrogen 11 mg/dL (8-23); Calcium 8.4 mg/dL (8.6-10.3); Carbon Dioxide 31 mEq/L (23-29); Chloride 104 mEq/L (98-107); Glucose 76 mg/dL (70-105); Osmolality,Calculated 288 (280-300); Potassium 3.7 mEq/L (3.5-5.1); Sodium 140 mEq/L (136-145); eGFR For African Americans > 60 (> 60); eGFR For Non-African Americans > 60 (> 60)
[2021-05-12] MEDS: amLODIPine 5 MG TABLET PO SCH (09:55)
[2021-05-12] MEDS: atenoloL 50 MG TABLET PO SCH (09:55)
[2021-05-12] MEDS: Aspirin 81 MG TAB.CHEW PO SCH (09:55)
[2021-05-12] MEDS: ALPRAZolam 1 MG TABLET PO SCH ×3 (09:55→22:10)
[2021-05-12] MEDS ORDERED: Ondansetron ODT 4 MG TAB.RAPDIS SL PRN (12:31)
[2021-05-12] MEDS ORDERED: *HR* Warfarin 5 MG TABLET PO ONE (18:00)
[2021-05-13 02:09] LABS: Hematocrit 30.4 % (35.3-44.9); Hemoglobin 9.8 g/dL (11.5-15.4); Mean Corpuscular HGB Conc 32.2 g/dL (31.6-35.5); Mean Corpuscular Hemoglobin 31.6 pg (28.0-33.3); Mean Corpuscular Volume 98.1 fL (83.0-100.0); Platelet Count 233 K/mcL (140-400); Red Cell Distribution Width 15.8 % (11.5-14.5)
[2021-05-13 02:22] LABS: INR 2.1; Prothrombin Time 23.6 Seconds (9.4-12.1)
[2021-05-13] MEDS: Heparin 25,000UNIT/250ML 1/2NS 25,000 UNIT/250 ML IV.SOLN IVC SCH (07:09)
[2021-05-13] MEDS: Aspirin 81 MG TAB.CHEW PO SCH (08:31)
[2021-05-13] MEDS: ALPRAZolam 1 MG TABLET PO SCH ×3 (08:31→20:35)
[2021-05-13] MEDS: amLODIPine 5 MG TABLET PO SCH (08:32)
[2021-05-13] MEDS: atenoloL 50 MG TABLET PO SCH (08:32)
[2021-05-13] MEDS ORDERED: *HR* Warfarin 2.5 MG TABLET PO ONE (18:00)
[2021-05-14 03:01] LABS: INR 4.2
[2021-05-14] MEDS: ALPRAZolam 1 MG TABLET PO SCH ×3 (08:07→20:47)
[2021-05-14] MEDS: Aspirin 81 MG TAB.CHEW PO SCH (08:07)
[2021-05-14] MEDS: atenoloL 50 MG TABLET PO SCH (08:07)
[2021-05-14] MEDS: amLODIPine 5 MG TABLET PO SCH (08:07)
[2021-05-14 08:17] LABS: Hematocrit 36.6 % (35.3-44.9); Hemoglobin 11.1 g/dL (11.5-15.4); Mean Corpuscular HGB Conc 30.3 g/dL (31.6-35.5); Mean Corpuscular Hemoglobin 31.3 pg (28.0-33.3); Mean Corpuscular Volume 103.1 fL (83.0-100.0); Mean Platelet Volume 9.2 fL (9.4-12.4); Platelet Count 213 K/mcL (140-400); Red Blood Count 3.55 M/mcL (3.82-4.97)
[2021-05-15 06:50] LABS: INR 2.6; Prothrombin Time 29.4 Seconds (9.4-12.1)
[2021-05-15] MEDS: ALPRAZolam 1 MG TABLET PO SCH ×2 (08:35→13:44)
[2021-05-15] MEDS: Aspirin 81 MG TAB.CHEW PO SCH (08:35)
[2021-05-15] MEDS: atenoloL 50 MG TABLET PO SCH (08:36)
[2021-05-15] MEDS: amLODIPine 5 MG TABLET PO SCH (08:36)
[2021-05-15 15:33] VITALS: TEMP 98.1
[2021-05-15 17:28] LABS: Adenovirus Not Detected (Not Detect); Bordetella Pertussis Not Detected (Not Detect); Chlamydophila pneumoniae Not Detected (Not Detect); Coronavirus 229E Not Detected (Not Detect); Coronavirus HKU1 Not Detected (Not Detect); Coronavirus NL63 Not Detected (Not Detect); Coronavirus OC43 Not Detected (Not Detect); Human Metapneumovirus Not Detected (Not Detect); Human Rhinovirus/Enterovirus Not Detected (Not Detect); Influenza A Subtype 2009 H1 Not Detected (Not Detect); Influenza B Not Detected (Not Detect); Mycoplasma pneumoniae Not Detected (Not Detect); Parainfluenza Virus 1 Not Detected (Not Detect); Parainfluenza Virus 2 Not Detected (Not Detect); Parainfluenza Virus 3 Not Detected (Not Detect); Parainfluenza Virus 4 Not Detected (Not Detect); Respiratory Syncytial Virus Not Detected (Not Detect); SARS-CoV-2 Not Detected (Not Detect)
[2021-05-15] MEDS ORDERED: *HR* Warfarin 2 MG TABLET PO ONE (18:00)
[2021-05-15 19:20] VITALS: BP 125/71; PULSE 73; O2SAT 96
[2021-05-17] MEDS ORDERED: *HR* Warfarin 2 MG TABLET PO ONE (18:00)
== END 2021-05-15 19:58 | disposition other institution (70) | DRG 301 ==
LOC: INTOOBSV 19:33 → 2ANU 19:33 → OBSVTOIN 19:33 → SUATTDRO 19:33
PROVIDERS: ADMIT Student in an Organized Health Care Education/Training Program; ATTEND General Practice

== ENCOUNTER 2021-08-06 05:23 | Inpatient (IN) ==
[2021-08-06] MEDS ORDERED: Ondansetron ODT 4 MG TAB.RAPDIS SL PRN (09:02)
[2021-08-06] MEDS ORDERED: Naloxone 0.4 MG/ML INJ IVP PRN (09:02)
[2021-08-06] MEDS ORDERED: Mag Hydrox/Al Hydrox/Simeth 30 ML UDC PO PRN (09:02)
[2021-08-06] MEDS ORDERED: 0.9 % Sodium Chloride 500 ML IVC ONE (09:17)
[2021-08-06] MEDS ORDERED: 0.9 % Sodium Chloride 1,000 ML IVC SCH (09:30)
[2021-08-06] MEDS ORDERED: Albuterol 2.5 MG/3 ML NEBULIZER IH PRN (10:29)
[2021-08-06] MEDS: cefTRIAXone 2,000 MG in Water for inj. (sterile) 20 ML IVP SCH (11:54)
[2021-08-06 14:37] LABS: Adenovirus Not Detected (Not Detect); Bordetella Pertussis Not Detected (Not Detect); Chlamydophila pneumoniae Not Detected (Not Detect); Coronavirus 229E Not Detected (Not Detect); Coronavirus HKU1 Not Detected (Not Detect); Coronavirus NL63 Not Detected (Not Detect); Coronavirus OC43 Not Detected (Not Detect); Human Metapneumovirus Not Detected (Not Detect); Human Rhinovirus/Enterovirus Not Detected (Not Detect); Influenza A Subtype 2009 H1 Not Detected (Not Detect); Influenza B Not Detected (Not Detect); Mycoplasma pneumoniae Not Detected (Not Detect); Parainfluenza Virus 1 Not Detected (Not Detect); Parainfluenza Virus 2 Not Detected (Not Detect); Parainfluenza Virus 3 Not Detected (Not Detect); Parainfluenza Virus 4 Not Detected (Not Detect); Respiratory Syncytial Virus Not Detected (Not Detect); SARS-CoV-2 Not Detected (Not Detect)
[2021-08-06 18:14] LABS: Basophils % 0.2 %; Eosinophils # 0.2 K/mcL (0.0-0.6); Eosinophils % 1.9 %; Hematocrit 26.6 % (35.3-44.9); Hemoglobin 7.9 g/dL (11.5-15.4); Immature Granulocytes % 0.4 % (0-4); Lymphocytes % 11.1 %; Mean Corpuscular HGB Conc 29.7 g/dL (31.6-35.5); Mean Corpuscular Hemoglobin 29.8 pg (28.0-33.3); Mean Corpuscular Volume 100.4 fL (83.0-100.0); Mean Platelet Volume 8.6 fL (9.4-12.4); Monocytes # 0.9 K/mcL (0.0-1.3); Monocytes % 10.1 %; Neutrophils # 6.5 K/mcL (1.6-8.9); Platelet Count 167 K/mcL (140-400); Red Blood Count 2.65 M/mcL (3.82-4.97); Red Cell Distribution Width 14.8 % (11.5-14.5); Segmented Neutrophils % 76.3 %; White Blood Count 8.5 K/mcL (4.3-11.1)
[2021-08-06 18:36] LABS: Albumin 3.4 g/dL (3.5-5.7); Bilirubin,Total 0.3 mg/dL (0.3-1.0); Calcium 8.8 mg/dL (8.6-10.3); Globulin 3.4 g/dL (2.4-3.5); Potassium 4.7 mEq/L (3.5-5.1); Total Protein 6.8 g/dL (6.4-8.9)
[2021-08-07] MEDS: ALPRAZolam 1 MG TABLET PO PRN ×2 (05:16→16:50)
[2021-08-07 05:33] LABS: Hematocrit 25.7 % (35.3-44.9); Hemoglobin 7.9 g/dL (11.5-15.4); Mean Corpuscular HGB Conc 30.7 g/dL (31.6-35.5); Mean Corpuscular Volume 97.7 fL (83.0-100.0); Mean Platelet Volume 8.7 fL (9.4-12.4); Platelet Count 191 K/mcL (140-400); Red Blood Count 2.63 M/mcL (3.82-4.97); Red Cell Distribution Width 14.9 % (11.5-14.5); White Blood Count 8.6 K/mcL (4.3-11.1)
[2021-08-07 05:43] LABS: INR 1.2; Prothrombin Time 13.7 Seconds (9.4-12.1)
[2021-08-07 05:53] LABS: Calcium 8.6 mg/dL (8.6-10.3); Potassium 4.3 mEq/L (3.5-5.1)
[2021-08-07] MEDS: amLODIPine 5 MG TABLET PO SCH (07:55)
[2021-08-07] MEDS: atenoloL 50 MG TABLET PO SCH (07:55)
[2021-08-07] MEDS: cefTRIAXone 2,000 MG in Water for inj. (sterile) 20 ML IVP SCH ×2 (11:00→12:46)
[2021-08-07] MEDS: Ipratropium/Albuterol Neb 3 ML IH SCH ×2 (11:00→16:51)
[2021-08-07] MEDS: Melatonin 3 MG TABLET PO PRN (23:25)
[2021-08-08 04:37] LABS: Basophils % 0.1 %; Eosinophils # 0.2 K/mcL (0.0-0.6); Eosinophils % 2.8 %; Hematocrit 24.8 % (35.3-44.9); Hemoglobin 7.7 g/dL (11.5-15.4); Immature Granulocytes % 0.7 % (0-4); Lymphocytes # 1.3 K/mcL (0.6-4.6); Lymphocytes % 15.4 %; Mean Corpuscular Hemoglobin 30.2 pg (28.0-33.3); Mean Corpuscular Volume 97.3 fL (83.0-100.0); Mean Platelet Volume 9.6 fL (9.4-12.4); Monocytes % 10.9 %; Neutrophils # 6.1 K/mcL (1.6-8.9); Platelet Count 222 K/mcL (140-400); Red Blood Count 2.55 M/mcL (3.82-4.97); Red Cell Distribution Width 14.6 % (11.5-14.5); Segmented Neutrophils % 70.1 %; White Blood Count 8.7 K/mcL (4.3-11.1)
[2021-08-08 05:00] LABS: Calcium 8.7 mg/dL (8.6-10.3); Magnesium 2.2 mg/dL (1.6-2.6); Potassium 4.5 mEq/L (3.5-5.1)
[2021-08-08] MEDS: Ipratropium/Albuterol Neb 3 ML IH SCH ×5 (07:34→21:39)
[2021-08-08] MEDS: ALPRAZolam 1 MG TABLET PO PRN (07:35)
[2021-08-08] MEDS: atenoloL 50 MG TABLET PO SCH (07:35)
[2021-08-08] MEDS: amLODIPine 5 MG TABLET PO SCH (07:35)
[2021-08-08] MEDS: cefTRIAXone 2,000 MG in Water for inj. (sterile) 20 ML IVP SCH (10:50)
[2021-08-08] MEDS ORDERED: Meropenem 500 MG in 0.9 % Sodium Chloride Mini Bag 100 ML IVP SCH (11:55)
[2021-08-08] MEDS: 0.9 % Sodium Chloride 1,000 ML IVC SCH ×2 (12:52→21:37)
[2021-08-08] MEDS: Meropenem 500 MG in 0.9 % Sodium Chloride Mini Bag 100 ML IVP SCH (21:26)
[2021-08-09] MEDS: Ipratropium/Albuterol Neb 3 ML IH SCH ×7 (03:27→20:20)
[2021-08-09 05:21] LABS: Basophils % 0.4 %; Eosinophils # 0.3 K/mcL (0.0-0.6); Eosinophils % 3.7 %; Hematocrit 26.7 % (35.3-44.9); Hemoglobin 7.9 g/dL (11.5-15.4); Immature Granulocytes % 1.6 % (0-4); Lymphocytes # 1.3 K/mcL (0.6-4.6); Lymphocytes % 16.7 %; Mean Corpuscular HGB Conc 29.6 g/dL (31.6-35.5); Mean Corpuscular Hemoglobin 29.7 pg (28.0-33.3); Mean Corpuscular Volume 100.4 fL (83.0-100.0); Mean Platelet Volume 9.4 fL (9.4-12.4); Monocytes # 0.8 K/mcL (0.0-1.3); Monocytes % 10.5 %; Neutrophils # 5.1 K/mcL (1.6-8.9); Platelet Count 229 K/mcL (140-400); Red Blood Count 2.66 M/mcL (3.82-4.97); Red Cell Distribution Width 14.9 % (11.5-14.5); Segmented Neutrophils % 67.1 %; White Blood Count 7.6 K/mcL (4.3-11.1)
[2021-08-09 05:40] LABS: Calcium 8.2 mg/dL (8.6-10.3); Magnesium 2.1 mg/dL (1.6-2.6); Phosphorous 3.7 mg/dL (2.7-4.5); Potassium 4.6 mEq/L (3.5-5.1)
[2021-08-09] MEDS: 0.9 % Sodium Chloride 1,000 ML IVC SCH ×2 (06:56→14:49)
[2021-08-09] MEDS: atenoloL 50 MG TABLET PO SCH (09:02)
[2021-08-09] MEDS: amLODIPine 5 MG TABLET PO SCH (09:02)
[2021-08-09] MEDS: Meropenem 500 MG in 0.9 % Sodium Chloride Mini Bag 100 ML IVP SCH (09:03)
[2021-08-09] MEDS: ALPRAZolam 1 MG TABLET PO PRN (21:02)
[2021-08-10] MEDS: Ipratropium/Albuterol Neb 3 ML IH SCH ×6 (00:08→22:11)
[2021-08-10 05:28] LABS: Basophils % 0.4 %; Eosinophils # 0.3 K/mcL (0.0-0.6); Eosinophils % 3.1 %; Hematocrit 26.1 % (35.3-44.9); Hemoglobin 7.9 g/dL (11.5-15.4); Immature Granulocytes % 2.6 % (0-4); Lymphocytes # 1.8 K/mcL (0.6-4.6); Lymphocytes % 18.7 %; Mean Corpuscular HGB Conc 30.3 g/dL (31.6-35.5); Mean Corpuscular Hemoglobin 30.2 pg (28.0-33.3); Mean Corpuscular Volume 99.6 fL (83.0-100.0); Mean Platelet Volume 9.3 fL (9.4-12.4); Monocytes % 9.9 %; Neutrophils # 6.3 K/mcL (1.6-8.9); Platelet Count 310 K/mcL (140-400); Red Blood Count 2.62 M/mcL (3.82-4.97); Segmented Neutrophils % 65.3 %; White Blood Count 9.6 K/mcL (4.3-11.1)
[2021-08-10 05:49] LABS: Calcium 8.3 mg/dL (8.6-10.3); Phosphorous 3.5 mg/dL (2.7-4.5); Potassium 4.8 mEq/L (3.5-5.1)
[2021-08-10] MEDS: 0.9 % Sodium Chloride 1,000 ML IVC SCH ×2 (05:56→15:48)
[2021-08-10] MEDS: atenoloL 50 MG TABLET PO SCH (08:40)
[2021-08-10] MEDS: amLODIPine 5 MG TABLET PO SCH (08:40)
[2021-08-10] MEDS: ALPRAZolam 1 MG TABLET PO PRN (22:11)
[2021-08-11 03:33] LABS: Basophils # 0.1 K/mcL (0.0-0.2); Basophils % 0.5 %; Eosinophils # 0.3 K/mcL (0.0-0.6); Eosinophils % 2.4 %; Hematocrit 26.9 % (35.3-44.9); Hemoglobin 8.1 g/dL (11.5-15.4); Immature Granulocytes % 2.5 % (0-4); Lymphocytes # 1.6 K/mcL (0.6-4.6); Lymphocytes % 14.3 %; Mean Corpuscular HGB Conc 30.1 g/dL (31.6-35.5); Mean Corpuscular Hemoglobin 29.2 pg (28.0-33.3); Mean Corpuscular Volume 97.1 fL (83.0-100.0); Mean Platelet Volume 8.4 fL (9.4-12.4); Monocytes % 8.7 %; Platelet Count 377 K/mcL (140-400); Red Blood Count 2.77 M/mcL (3.82-4.97); Red Cell Distribution Width 14.6 % (11.5-14.5); Segmented Neutrophils % 71.6 %; White Blood Count 11.2 K/mcL (4.3-11.1)
[2021-08-11 03:44] LABS: Calcium 8.5 mg/dL (8.6-10.3); Magnesium 1.7 mg/dL (1.6-2.6); Phosphorous 2.6 mg/dL (2.7-4.5); Potassium 3.9 mEq/L (3.5-5.1)
[2021-08-11] MEDS: Ipratropium/Albuterol Neb 3 ML IH SCH ×7 (04:08→23:59)
[2021-08-11] MEDS: atenoloL 50 MG TABLET PO SCH (09:36)
[2021-08-11] MEDS: amLODIPine 5 MG TABLET PO SCH (09:36)
[2021-08-11] MEDS ORDERED: *HR* FentaNYL (PF) 100 MCG/2 ML VIAL ONE ×2 (11:04→14:30)
[2021-08-11] MEDS ORDERED: *HR* Propofol 200 MG/20 ML VIAL IVP ONE (11:04)
[2021-08-11] MEDS ORDERED: Ondansetron 4 MG/2 ML VIAL ONE (11:06)
[2021-08-11] MEDS ORDERED: Lidocaine HCL 4 ML Topical Solution (Laryng-O-Jet Kit Sterile Pak) TP ONE (11:06)
[2021-08-11] MEDS ORDERED: *HR* Succinylcholine 200 MG/10 ML VIAL IVP ONE (11:06)
[2021-08-11] MEDS ORDERED: Lidocaine -MPF 2% 5 ML VIAL ONE (11:06)
[2021-08-11] MEDS ORDERED: 0.9 % Sodium Chloride 1,000 ML IVC SCH (11:31)
[2021-08-11] MEDS ORDERED: Ondansetron 4 MG/2 ML VIAL IVP PRN (12:37)
[2021-08-11] MEDS ORDERED: *HR* FentaNYL (PF) 100 MCG/2 ML VIAL IVP PRN (12:37)
[2021-08-11] MEDS ORDERED: *HR* HYDROmorphone PF 0.5 MG/0.5 ML SYRINGE IVP PRN (12:37)
[2021-08-11] MEDS ORDERED: Vancomycin 1,000 MG VIAL ONE (12:38)
[2021-08-11] MEDS ORDERED: EPHEDrine 50 MG/ML VIAL ONE (12:48)
[2021-08-11] MEDS ORDERED: *HR* Phenylephrine 10 MG/ML VIAL ONE (12:48)
[2021-08-11] MEDS ORDERED: Ethanol\\Acetic Acid\\Na Ace\\Ben 1,000 ML IRRIG.SOLN IR ONE (12:50)
[2021-08-11] MEDS ORDERED: Ipratropium/Albuterol Neb 3 ML IH ONE (13:01)
[2021-08-11] MEDS ORDERED: Albumin Human 5% 12.5 GM/250 ML IV.SOLN ONE (13:44)
[2021-08-11] MEDS ORDERED: Clindamycin 900 MG/50 ML 900 MG/50 ML IV.SOLN IVPB ONE (14:14)
[2021-08-11 15:05] LABS: ABG Base Excess -4 mEq/L (-2 to 3); ABG Chloride 106 mEq/L (98-107); ABG Glucose 88 mg/dL (60-95); ABG HCO3 21 mEq/L (21-27); ABG Ionized Calcium 1.18 mmol/L (1.15-1.35); ABG Oxygen Saturation 100 % (95-98); ABG PCO2 41 mmHg (35-45); ABG PH 7.33 pH Units (7.32-7.45); ABG PO2 321 mmHg (85-104); ABG TCO2 23 mEq/L (20-26)
[2021-08-11] MEDS ORDERED: Clindamycin 900 MG/50 ML 900 MG/50 ML IV.SOLN IVPB SCH (16:00)
[2021-08-11 16:46] LABS: Hematocrit 21.9 % (35.3-44.9); Hemoglobin 6.7 g/dL (11.5-15.4); Mean Corpuscular HGB Conc 30.6 g/dL (31.6-35.5); Mean Corpuscular Hemoglobin 29.5 pg (28.0-33.3); Mean Corpuscular Volume 96.5 fL (83.0-100.0); Mean Platelet Volume 8.3 fL (9.4-12.4); Platelet Count 289 K/mcL (140-400); Red Blood Count 2.27 M/mcL (3.82-4.97); Red Cell Distribution Width 14.6 % (11.5-14.5); White Blood Count 9.3 K/mcL (4.3-11.1)
[2021-08-11 20:37] LABS: Hematocrit 31.4 % (35.3-44.9)
[2021-08-11 20:38] LABS: Hemoglobin 9.9 g/dL (11.5-15.4)
[2021-08-11] MEDS: ALPRAZolam 1 MG TABLET PO PRN (22:01)
[2021-08-11] MEDS: Melatonin 3 MG TABLET PO PRN (22:02)
[2021-08-12] MEDS: Clindamycin 900 MG/50 ML 900 MG/50 ML IV.SOLN IVPB SCH ×2 (01:02→08:38)
[2021-08-12] MEDS: Ipratropium/Albuterol Neb 3 ML IH SCH ×6 (04:53→23:45)
[2021-08-12 07:39] LABS: Basophils % 0.1 %; Hematocrit 28.6 % (35.3-44.9); Immature Granulocytes % 2.9 % (0-4); Lymphocytes # 0.8 K/mcL (0.6-4.6); Lymphocytes % 8.3 %; Mean Corpuscular HGB Conc 31.5 g/dL (31.6-35.5); Mean Corpuscular Hemoglobin 29.3 pg (28.0-33.3); Mean Corpuscular Volume 93.2 fL (83.0-100.0); Mean Platelet Volume 8.3 fL (9.4-12.4); Monocytes # 0.2 K/mcL (0.0-1.3); Monocytes % 2.3 %; Neutrophils # 7.8 K/mcL (1.6-8.9); Platelet Count 310 K/mcL (140-400); Red Blood Count 3.07 M/mcL (3.82-4.97); Red Cell Distribution Width 14.8 % (11.5-14.5); Segmented Neutrophils % 86.4 %
[2021-08-12 08:21] LABS: Calcium 8.4 mg/dL (8.6-10.3); Magnesium 1.8 mg/dL (1.6-2.6); Phosphorous 4.7 mg/dL (2.7-4.5); Potassium 4.2 mEq/L (3.5-5.1)
[2021-08-12] MEDS: ALPRAZolam 1 MG TABLET PO PRN ×2 (08:38→16:45)
[2021-08-12] MEDS: atenoloL 50 MG TABLET PO SCH (08:43)
[2021-08-12] MEDS: amLODIPine 5 MG TABLET PO SCH (08:43)
[2021-08-12] MEDS ORDERED: Aspirin Enteric Coated 325 MG Tablet PO SCH (09:00)
[2021-08-13] MEDS: ALPRAZolam 1 MG TABLET PO PRN ×3 (00:37→20:27)
[2021-08-13 03:12] LABS: Basophils % 0.2 %; Eosinophils % 0.2 %; Hematocrit 26.6 % (35.3-44.9); Hemoglobin 8.4 g/dL (11.5-15.4); Immature Granulocytes % 1.8 % (0-4); Lymphocytes # 1.2 K/mcL (0.6-4.6); Lymphocytes % 10.5 %; Mean Corpuscular HGB Conc 31.6 g/dL (31.6-35.5); Mean Corpuscular Hemoglobin 29.3 pg (28.0-33.3); Mean Corpuscular Volume 92.7 fL (83.0-100.0); Mean Platelet Volume 8.3 fL (9.4-12.4); Monocytes # 0.8 K/mcL (0.0-1.3); Monocytes % 7.1 %; Neutrophils # 9.5 K/mcL (1.6-8.9); Platelet Count 344 K/mcL (140-400); Red Blood Count 2.87 M/mcL (3.82-4.97); Red Cell Distribution Width 14.8 % (11.5-14.5); Segmented Neutrophils % 80.2 %; White Blood Count 11.8 K/mcL (4.3-11.1)
[2021-08-13 03:17] LABS: Calcium 8.1 mg/dL (8.6-10.3); Magnesium 1.7 mg/dL (1.6-2.6); Phosphorous 2.9 mg/dL (2.7-4.5); Potassium 3.5 mEq/L (3.5-5.1)
[2021-08-13] MEDS: Ipratropium/Albuterol Neb 3 ML IH SCH ×5 (05:04→20:27)
[2021-08-13] MEDS ORDERED: *HR* Enoxaparin 40 MG/0.4 ML SYRINGE SQ SCH (09:00)
[2021-08-13] MEDS ORDERED: Aspirin Enteric Coated 325 MG Tablet PO SCH (09:00)
[2021-08-13] MEDS: atenoloL 50 MG TABLET PO SCH (10:20)
[2021-08-13] MEDS: amLODIPine 5 MG TABLET PO SCH (10:20)
[2021-08-13] MEDS ORDERED: *HR* Warfarin 2.5 MG TABLET PO ONE (18:00)
[2021-08-13] MEDS ORDERED: Warfarin perPT PO PRN (18:00)
[2021-08-13] MEDS ORDERED: ALPRAZolam 0.5 MG TABLET PO PRN (21:06)
[2021-08-14] MEDS: Ipratropium/Albuterol Neb 3 ML IH SCH ×7 (00:16→23:29)
[2021-08-14] MEDS ORDERED: HydrOXYzine 100 MG/2 ML VIAL IM ONE (02:10)
[2021-08-14 04:35] LABS: INR 1.6; Prothrombin Time 18.1 Seconds (9.4-12.1)
[2021-08-14] MEDS: atenoloL 50 MG TABLET PO SCH (08:37)
[2021-08-14] MEDS: amLODIPine 5 MG TABLET PO SCH (08:37)
[2021-08-14 12:02] LABS: Potassium 3.6 mEq/L (3.5-5.1)
[2021-08-14 12:06] LABS: Basophils % 0.3 %; Eosinophils # 0.1 K/mcL (0.0-0.6); Eosinophils % 1.2 %; Hematocrit 30.2 % (35.3-44.9); Hemoglobin 9.7 g/dL (11.5-15.4); Immature Granulocytes % 1.1 % (0-4); Lymphocytes # 1.4 K/mcL (0.6-4.6); Lymphocytes % 13.1 %; Mean Corpuscular HGB Conc 32.1 g/dL (31.6-35.5); Mean Corpuscular Hemoglobin 29.8 pg (28.0-33.3); Mean Corpuscular Volume 92.6 fL (83.0-100.0); Mean Platelet Volume 8.1 fL (9.4-12.4); Monocytes # 0.9 K/mcL (0.0-1.3); Monocytes % 7.9 %; Neutrophils # 8.4 K/mcL (1.6-8.9); Platelet Count 409 K/mcL (140-400); Red Blood Count 3.26 M/mcL (3.82-4.97); Red Cell Distribution Width 15.1 % (11.5-14.5); Segmented Neutrophils % 76.4 %
[2021-08-14] MEDS ORDERED: *HR* Warfarin 2.5 MG TABLET PO ONE (18:00)
[2021-08-15] MEDS: Ipratropium/Albuterol Neb 3 ML IH SCH ×3 (03:18→11:48)
[2021-08-15 04:27] LABS: Basophils % 0.3 %; Eosinophils # 0.2 K/mcL (0.0-0.6); Eosinophils % 2.1 %; Hematocrit 28.8 % (35.3-44.9); Immature Granulocytes % 0.9 % (0-4); Lymphocytes # 1.8 K/mcL (0.6-4.6); Lymphocytes % 20.2 %; Mean Corpuscular HGB Conc 31.3 g/dL (31.6-35.5); Mean Corpuscular Volume 92.9 fL (83.0-100.0); Mean Platelet Volume 8.3 fL (9.4-12.4); Monocytes # 0.7 K/mcL (0.0-1.3); Monocytes % 7.6 %; Platelet Count 373 K/mcL (140-400); Segmented Neutrophils % 68.9 %; White Blood Count 8.7 K/mcL (4.3-11.1)
[2021-08-15 04:36] LABS: INR 2.1; Prothrombin Time 22.8 Seconds (9.4-12.1)
[2021-08-15 04:47] LABS: Calcium 8.5 mg/dL (8.6-10.3); Potassium 3.5 mEq/L (3.5-5.1)
[2021-08-15 08:32] VITALS: BP 151/71; PULSE 77; TEMP 98
[2021-08-15] MEDS: atenoloL 50 MG TABLET PO SCH (08:35)
[2021-08-15] MEDS: amLODIPine 5 MG TABLET PO SCH (08:35)
[2021-08-15 10:06] LABS: Influenza A PCR Negative (Negative); Influenza B PCR Negative (Negative); Resp. Syncytial Virus PCR Negative (Negative)
[2021-08-15 10:56] LABS: SARS-CoV-2 by PCR (In House) Negative (Negative)
[2021-08-15 11:49] VITALS: O2SAT 93
[2021-08-15] MEDS ORDERED: *HR* Warfarin 2 MG TABLET PO ONE (18:00)
== END 2021-08-15 14:23 | DRG 956 ==
LOC: 4WAOSI → SUATTDRO 09:05
PROVIDERS: ADMIT Family Medicine; ATTEND Internal Medicine